=== PATIENT | female | born 1975 | race Caucasian/White ===

== ENCOUNTER 2022-04-04 06:09 | Day surgery (SDC) | payer BC, SELFPAY ==
[2022-04-04 06:38] VITALS: BMI 39.8
[2022-04-04 06:42] VITALS: BP 119/60; PULSE 60; RESP 16; TEMP 37.1
[2022-04-04] MEDS: LACTATED RINGERS 1000 ML 1,000 ML 100 ML IV (07:00)
[2022-04-04] MEDS: SODIUM CHLORIDE 0.9 % (FLUSH) 10 ML SYRINGE IVF (07:02)
--- NOTE | 2022-04-04 07:15 | CRLHL7_ITS ---
For Patients: As a result of the Cures Act, medical imaging exams and procedure reports are released immediately into your electronic medical record. You may view this report before your referring provider. If you have questions, please contact your health care provider. Indication: RIGHT 1ST MPJ FUSION, 2ND METATARSAL OSTEOTOMY Technique: Two fluoroscopic images of the right foot. Fluoroscopic time 10.0 seconds. IMPRESSION: Fluoroscopic guidance for fusion across the 1st MTP joint and to the 2nd metatarsal head. Dictated by Zuhair Rodriguez MD @ 04/04/2022 9:43:08 AM (Electronically Signed)
[2022-04-04] MEDS: BUPIVACAINE 0.5% 30 ML INJECTION (07:20)
[2022-04-04] MEDS: BUPIVACAINE 0.5% 30 ML 10 ML INJECTION (07:35)
--- NOTE | 2022-04-04 07:36 | SUR.OPER ---
TIME OUT PERFORMED PRIOR TO INJECTION OF THE LOCAL IN THE RIGHT FOOT AT 07:20.? ? PATIENT QUESTIONS ANSWERED SATISFACTORILY PREOPERATIVELY.? PATIENT BROUGHT TO OR #1 PER CART.? Patient positioned supine on OR #1 bed.?The perioperative?team supported arms bilaterally on arm boards.? Final approval of positioning by surgeon.
--- NOTE | 2022-04-04 07:37 | W.ANESCHARGE ---
Anesthesia Charges Start Date/Time Anesthesia Start Date: 04/04/22 Anesthesia Start Time: 07:13 Stop Date/Time Anesthesia Stop Date: 04/04/22 Anesthesia Stop Time: 09:16
[2022-04-04 09:11] VITALS: BP 113/79; RESP 16; TEMP 35.5; O2SAT 96
[2022-04-04 09:15] VITALS: BP 112/87; PULSE 65; RESP 16; TEMP 36.1; O2SAT 96
--- NOTE | 2022-04-04 09:19 | W.ANESCHARGE ---
Anesthesia Charges Start Date/Time Anesthesia Start Date: 04/04/22 Anesthesia Start Time: 07:13 Stop Date/Time Anesthesia Stop Date: 04/04/22 Anesthesia Stop Time: 09:16
--- NOTE | 2022-04-04 09:20 | PM.GSPRC ---
Operative Note Date of procedure: 04/04/22 Pre-op diagnosis: 1. Hallux valgus with bunion right 2. Metatarsalgia 2nd right Post-op diagnosis: 1. Hallux valgus bunion right 2. Metatarsalgia 2nd right Type of Procedure: 1. First MPJ fusion right foot 2. Jose M osteotomy 2nd metatarsal right Indications: Patient is going pain is not relieved with conservative care. She has elected to have surgical correction of the right foot. I reviewed the procedure, recovery, expectations and potential complications. These include but are not limited to: Poor wound healing, infection, under correction, over correction, nonunion, delayed union, malunion, nerve injury, hardware irritation failure, deep venous thrombosis, pulmonary embolism, floating toe, possible . All questions answered and consent obtained. Procedure Description: After discussing the risks and benefits of the procedure, the patient signed informed consent.? The operative site was marked and the patient was brought to the operating room and placed on the operating table in supine position.? Care was taken to pad the patient's pressure points.?? The patient was then given sedation by anesthesia.??I injected 30 mL of 0.5% Marcaine plain into the right foot. The operative site was then prepped and draped in the usual sterile fashion.? A time-out was then performed. The foot was then exsanguinated and the ankle tourniquet inflated to 250 mm Hg. Linear incisions made over the 1st metatarsophalangeal joint of the right foot. Incision was carried down through skin subcutaneous tissues. Linear capsular incision was then made. Capsular tissues reflected away from the base of the proximal phalanx and head of the 1st metatarsal. Guide pin was placed in the 1st metatarsal head and an 18 mm Reamer was used to remove cartilage and subchondral bone. The guide pin was removed and placed in the base of the proximal phalanx and the corresponding 18 mm Reamer was used to remove cartilage and subchondral bone. Wound was thoroughly irrigated normal sterile saline. Simulated weight-bearing was performed and the fusion site was positioned perfectly. K-wire was placed across the fusion site from a proximal medial to distal lateral orientation. C-arm confirmed excellent position. Guide pin was placed distal medial to proximal lateral across the fusion site and a 3.0 cannulated the screw was inserted. Excellent compression across the fusion site. Dorsal 6 hole plate was then applied. Three 3.0 mm locking screws were placed distal and 2 proximal in addition to a nonlocking screw placed proximal. Rotary bur was used to remodel the 1st metatarsal head. Wound was thoroughly irrigated normal sterile saline. C-arm images confirmed excellent position. Clinical position was excellent. Joint capsule was reapproximated with 3-0 Vicryl. Subcutaneous tissues reapproximated 4-0 Monocryl and skin closed with 4-0 Prolene. Linear incisions made over the 2nd metatarsophalangeal joint and extended proximal. Incision was carried down through skin subcutaneous tissues. The extensor brevis tendon was tenotomized. The EHL tendon was retracted laterally. T-shaped capsular incision was made releasing both medial and lateral joint capsules. A Jose M osteotomy was performed the capital fragment was shortened by 2 mm and laterally translated by 2-3 mm. Was fixated with 2.0 mm twist off screws x2. Redundant bony overhang was removed with a rongeur. We irrigated with normal sterile saline. C-arm confirmed improved position of the 2nd toe. The medial joint capsule was repaired and tightened with 4-0 Vicryl. Dorsal joint capsule repaired with 4-0 Vicryl. The lateral joint capsule left open. The extensor tendon was medialized with 4-0 Vicryl. Subcutaneous tissues reapproximated 4-0 Monocryl. Skin closed with 4-0 Prolene. Sterile dressings were then applied. Normal capillary fill time returned all digits.? The patient was then woken and transported to the recovery area in stable condition. The patient tolerated the procedure well. Findings: Complications: None apparent Implants: [employer] 1st MPJ fusion plate x1, 3.0 mm locking screws x 5, 3.0 mm nonlocking screw x1, 3.0 mm headless cannulated screw x1, 2 mm twist off screws x2. Anesthesia: MAC and local Surgeon: Antoni Mcgarry DPM Estimated blood loss (mL): 2 Condition: stable Disposition: same day
[2022-04-04 09:30] VITALS: BP 123/86; PULSE 61; RESP 16; O2SAT 96
[2022-04-04 09:45] VITALS: BP 116/77; PULSE 67; RESP 16; O2SAT 98
== END 2022-04-04 10:15 | disposition home or self-care (01) ==
PROVIDERS: Visit Provider Podiatrist
PROC: (CPT 28740; principal; 2022-04-04 07:15)
DX: M20.11 Hallux valgus (acquired), right foot (principal); M21.611 Bunion of right foot; M77.41 Metatarsalgia, right foot
CPT/HCPCS: 28750; 28308; 01480; 73620; 76000; 97116; 97161; A4580; C1713; J2250; J2704; J3010; J3490; J7120